=== PATIENT | female | born 1985 | race Two or more races ===

== ENCOUNTER 2025-02-08 08:16 | Emergency (ER) | payer SELFPAY ==
[~2025-02-08] VITALS: Ht 172.7 cm; Wt 92.9 kg
[2025-02-08 08:20] VITALS: BP 118/86; PULSE 66; RESP 16; TEMP 98; O2SAT 96
[2025-02-08] MEDS ORDERED: METH-1181 PO (09:38)
[2025-02-08] MEDS ORDERED: IBUP-1455 PO (09:38)
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
[2025-02-08] MEDS: KETOROLAC TROMETH 30 MG/ML 1ML VIAL IM ONE (09:44)
[2025-02-08] MEDS: HYDROcodone-ACET 7.5/325MG TAB PO ONE (09:45)
== END 2025-02-08 10:12 | disposition home or self-care (01) ==
LOC: ER 08:21
DX: M79.10 Myalgia, unspecified site (principal); V69.9XXA Occupant (driver) (passenger) of heavy transport vehicle injured in unspecified traffic accident, initial encounter; Y93.89 Activity, other specified; Y92.411 Interstate highway as the place of occurrence of the external cause; Y99.8 Other external cause status
CPT/HCPCS: 96372; 99283; J1885